=== PATIENT | male | born 1950 | race African-American/Black ===

== ENCOUNTER 2017-09-26 15:59 | Emergency (ER) | payer MEDICARE, MEDICAID ==
[~2017-09-26] VITALS: Ht 177.8 cm; Wt 77.0 kg
[2017-09-26] MEDS ORDERED: FENTANYL CITRATE/PF 50MCG/ML 2ML VIAL IV ONE ×2 (17:30→19:15)
[2017-09-26] MEDS ORDERED: KETAMINE HCL 50 MG/ML 10ML IV ONE (19:00)
[2017-09-26 21:50] VITALS: BP 171/87
[2017-09-26] MEDS ORDERED: ONDANSETRON 4MG ODT PO ONE (23:15)
== END 2017-09-26 23:30 | disposition home or self-care (01) ==
LOC: ER 16:22
DX: S43.005A Unspecified dislocation of left shoulder joint, initial encounter (principal); E11.9 Type 2 diabetes mellitus without complications; I10 Essential (primary) hypertension; F17.200 Nicotine dependence, unspecified, uncomplicated; W01.0XXA Fall on same level from slipping, tripping and stumbling without subsequent striking against object, initial encounter; Y93.89 Activity, other specified; Y92.89 Other specified places as the place of occurrence of the external cause; Y99.8 Other external cause status
CPT/HCPCS: 23650; 73030; 96374; 96376; 99285; J3010; J3490; Q0162; 99152; A4565; L3670

== ENCOUNTER 2019-06-22 05:23 | Inpatient (IN) | payer MEDICARE, MEDICAID ==
[~2019-06-22] VITALS: Ht 172.7 cm; Wt 78.0 kg
[2019-06-22] MEDS ORDERED: ONDANSETRON HCL 4MG/2ML INJ IV STA (05:48)
[2019-06-22] MEDS ORDERED: SODIUM CHLORIDE 0.9% 1,000 ML IV ONE (05:48)
[2019-06-22] MEDS ORDERED: PANTOPRAZOLE SODIUM 40 MG/VIAL IV STA (05:53)
[2019-06-22 06:24] LABS: BASOPHILS % 0.5 % (0.0-2.0); HEMATOCRIT. 26.2 % (42.0-52.0); HEMOGLOBIN. 8.1 g/dL (14.0-18.0); MEAN CORPUSCULAR HEMOGLOBIN 31.7 pg (28.0-32.0); MEAN PLATELET VOLUME 9.5 fl (7.4-10.4); MONOCYTES % 8.5 % (2.0-8.0); PLATELET 190 x1000/uL (130-400); RED BLOOD CELL COUNT 2.57 mill/uL (4.7-6.1); RED CELL DISTRIBUTION WIDTH 20.4 % (11.6-14.6)
[2019-06-22 06:29] LABS: CHLORIDE 107 mEq/L (98-107); INR 1.2; PROTHROMBIN TIME 13.4 sec (9.6-11.0)
[2019-06-22 06:33] LABS: ETHANOL BLOOD 224 mg/dL
[2019-06-22 07:21] LABS: CREATINE KINASE 187 IU/L (39-308)
[2019-06-22 07:24] LABS: CLARITY URINE CLOUDY (CLEAR); COLOR URINE YELLOW (YELLOW); KETONES URINE NEGATIVE (NEGATIVE); LEUKOCYTE ESTERASE URINE NEGATIVE (NEGATIVE); NITRITE URINE NEGATIVE (NEGATIVE); OCCULT BLOOD URINE NEGATIVE (NEGATIVE); PROTEIN URINE TRACE (NEGATIVE)
[2019-06-22] MEDS ORDERED: PIPERACILLIN/TAZ 3.375G PREMIX 50 ML IV SCH (07:45)
[2019-06-22] MEDS ORDERED: PIPERACILLIN/TAZOBACTAM 3.375GM/50ML PREMIX IV ONE (07:45)
[2019-06-22] MEDS ORDERED: SODIUM CHLORIDE 0.9% 1,300 ML IV SCH (07:45)
[2019-06-22 07:46] LABS: *AMPHETAMINES SCREEN URINE NEGATIVE (NEGATIVE); *BARBITURATES SCREEN URINE NEGATIVE (NEGATIVE); *BENZODIAZEPINES SCREEN URINE NEGATIVE (NEGATIVE); *COCAINE SCREEN URINE NEGATIVE (NEGATIVE); METHADONE URINE SCREEN NEGATIVE (NEGATIVE)
[2019-06-22 07:47] LABS: CANNABINOID URINE SCREEN PRESUMTIVE POSITIVE (NEGATIVE); OPIATES URINE SCREEN NEGATIVE (NEGATIVE); PHENCYCLIDINE URINE SCREEN NEGATIVE (NEGATIVE)
[2019-06-22] MEDS ORDERED: LORAZEPAM 2MG/ML CPJ IV ONE (09:15)
[2019-06-22] MEDS ORDERED: DIPHENHYDRAMINE 50MG/ML VIAL IV PRN (09:45)
[2019-06-22] MEDS ORDERED: ACETAMINOPHEN 325MG TABLET PO PRN (09:45)
[2019-06-22] MEDS ORDERED: ONDANSETRON HCL 4MG/2ML INJ IV PRN (09:45)
[2019-06-22] MEDS ORDERED: CLONIDINE 0.1MG TABLET PO PRN (09:45)
[2019-06-22 10:07] LABS: PHOSPHORUS 2.6 mg/dL (2.5-4.9)
[2019-06-22] MEDS ORDERED: SODIUM CHLORIDE 0.9% 1,000 ML IV SCH (11:00)
[2019-06-22] MEDS ORDERED: SODIUM BICARBONATE 8.4% 1 MEQ/ML 50ML SYR IV SCH (11:45)
[2019-06-22 12:43] LABS: BG BASE EXCESS -10.2 mmol/L (-2.0-2.0); BG CARBOXYHEMOGLOBIN 0.3 % (0.5-1.5); BG DEOXYHEMOGLOBIN 5.2 % (0.0-5.0); BG FRACTION INSPIRED OXYGEN 24; BG HCO3 ACT 15.8 mmol/L (22.0-26.0); BG METHEMOGLOBIN 0.1 % (0.0-1.5); BG OXYGEN SATURATION 94.8 % (92.0-98.5); BG OXYHEMOGLOBIN 94.4 % (94.0-97.0); BG PCO2 35.3 mmHg (35.0-45.0); BG PH 7.269 (7.350-7.450); BG PO2 92.8 mmHg (75.0-100.0); BG SAMPLE SITE RIGHT RADIAL; BG TOTAL HEMOGLOBIN 7.4 g/dL (12.0-18.0); BG VENT MODE NASAL CANNULA
[2019-06-22] MEDS: SODIUM BICARBONATE 150 MEQ in DEXTROSE 5% WATER 1,000 ML IV SCH (13:44)
[2019-06-22] MEDS ORDERED: DILTIAZEM HCL 90MG TABLET PO NR (16:45)
[2019-06-22] MEDS ORDERED: PIPERACILLIN/TAZ 3.375G PREMIX 50 ML IV NR (18:00)
[2019-06-22] MEDS ORDERED: PANTOPRAZOLE 80 MG in SODIUM CHLORIDE 0.9% 100 ML IV SCH (19:00)
[2019-06-22] MEDS ORDERED: OCTREOTIDE 1,000 MCG in SODIUM CHLORIDE 0.9% 100 ML IV SCH (21:00)
[2019-06-22] MEDS ORDERED: OCTREOTIDE ACETATE 50 MCG/ML 1ML IV NR (21:15)
[2019-06-22] MEDS ORDERED: OCTREOTIDE ACETATE 100 MCG/ML 1ML SUBCUT NR (21:15)
[2019-06-22 21:30] LABS: HEMATOCRIT 22.6 % (42.0-52.0); HEMOGLOBIN 7.4 g/dL (14.0-18.0)
[2019-06-22 22:00] LABS: CREATINE KINASE MB FRACTION 8.7 ng/mL (0.5-3.6)
[2019-06-22 22:13] LABS: FOLIC ACID (FOLATE) SERUM 6.1 ng/mL (>5.38)
[2019-06-22 22:45] VITALS: BP 182/86
[2019-06-22 23:00] VITALS: BP_SYST 167; BP_SYST 182; BP_DIAS 86; BP_DIAS 87
[2019-06-22 23:15] VITALS: BP 156/78
[2019-06-22] MEDS ORDERED: DEXTROSE 50% WATER 50ML SYRINGE IV PRN (23:15)
[2019-06-22 23:30] VITALS: BP 147/85
[2019-06-22 23:45] VITALS: BP 153/83
[2019-06-23] VITALS (98 sets, daily range): BP systolic 89–163; BP diastolic 47–95
[2019-06-23] MEDS: OCTREOTIDE 1,000 MCG in SODIUM CHLORIDE 0.9% 100 ML IV SCH ×2 (00:01→18:17)
[2019-06-23] MEDS: PANTOPRAZOLE SODIUM 40 MG/VIAL IV SCH ×3 (00:04→16:38)
[2019-06-23] MEDS: DILTIAZEM HCL 90MG TABLET PO SCH ×4 (00:04→21:03)
[2019-06-23 01:33] LABS: BASOPHILS % 0.5 % (0.0-2.0); EOSINOPHILS % 0.1 % (0.0-5.0); HEMATOCRIT. 23.8 % (42.0-52.0); HEMOGLOBIN. 7.9 g/dL (14.0-18.0); LYMPHOCYTES % 7.4 % (20.0-50.0); MEAN CORPUSCULAR HEMOGLOBIN 31.6 pg (28.0-32.0); MEAN CORPUSCULAR VOLUME 94.7 fL (80.0-94.0); MONOCYTES % 7.8 % (2.0-8.0); NEUTROPHILS % 84.2 % (40.0-76.0); RED BLOOD CELL COUNT 2.51 mill/uL (4.7-6.1); RED CELL DISTRIBUTION WIDTH 20.1 % (11.6-14.6)
[2019-06-23 01:53] LABS: CREATINE KINASE MB FRACTION 6.1 ng/mL (0.5-3.6)
[2019-06-23 01:58] LABS: MEAN PLATELET VOLUME 8.7 fl (7.4-10.4)
[2019-06-23 01:59] LABS: PLATELET 82 x1000/uL (130-400)
[2019-06-23] MEDS ORDERED: PIPERACILLIN/TAZ 3.375G PREMIX 50 ML IV SCH (02:00)
[2019-06-23] MEDS: SODIUM BICARBONATE 150 MEQ in DEXTROSE 5% WATER 1,000 ML IV SCH (02:06)
[2019-06-23] MEDS: PIPERACILLIN/TAZOBACTAM 2.25 G in DEXTROSE 5% WATER 50 ML IV SCH ×2 (02:07→09:23)
[2019-06-23 05:41] LABS: BASOPHILS % 0.2 % (0.0-2.0); EOSINOPHILS % 0.2 % (0.0-5.0); HEMATOCRIT. 21.3 % (42.0-52.0); LYMPHOCYTES % 8.1 % (20.0-50.0); MEAN CORPUSCULAR HEMOGLOBIN 31.3 pg (28.0-32.0); MEAN CORPUSCULAR VOLUME 94.8 fL (80.0-94.0); MEAN PLATELET VOLUME 8.8 fl (7.4-10.4); MONOCYTES % 7.2 % (2.0-8.0); NEUTROPHILS % 84.3 % (40.0-76.0); PLATELET 73 x1000/uL (130-400); RED BLOOD CELL COUNT 2.25 mill/uL (4.7-6.1); RED CELL DISTRIBUTION WIDTH 19.9 % (11.6-14.6)
[2019-06-23 05:44] LABS: CHLORIDE 109 mEq/L (98-107)
[2019-06-23 05:52] LABS: LDL CHOLESTEROL 25 mg/dL (5-100)
[2019-06-23 05:53] LABS: CREATINE KINASE 186 IU/L (39-308)
[2019-06-23 05:54] LABS: HDL CHOLESTEROL 38 mg/dL (40-59)
[2019-06-23] MEDS: BLOOD SUGAR DIAGNOSTIC STRIP TEST SCH ×4 (06:30→21:46)
[2019-06-23] MEDS: INSULIN LISPRO 100 UNITS/ML SUBCUT SCH ×4 (06:34→21:00)
[2019-06-23] MEDS ORDERED: PANTOPRAZOLE SODIUM 40 MG/VIAL IV SCH (09:00)
[2019-06-23] MEDS: CLONIDINE 0.1MG TABLET PO SCH ×2 (09:00→21:02)
[2019-06-23] MEDS ORDERED: SODIUM BICARBONATE 50 MEQ in DEXTROSE 5% WATER 1,000 ML IV SCH (13:00)
[2019-06-23] MEDS ORDERED: BENZONATATE 100MG CAPSULE PO PRN (16:15)
[2019-06-23 23:54] LABS: BASOPHILS % 0.5 % (0.0-2.0); EOSINOPHILS % 2.7 % (0.0-5.0); HEMATOCRIT. 28.3 % (42.0-52.0); HEMOGLOBIN. 9.6 g/dL (14.0-18.0); LYMPHOCYTES % 14.1 % (20.0-50.0); MEAN CORPUSCULAR HEMOGLOBIN 31.2 pg (28.0-32.0); MEAN CORPUSCULAR VOLUME 92.3 fL (80.0-94.0); MEAN PLATELET VOLUME 8.4 fl (7.4-10.4); MONOCYTES % 9.7 % (2.0-8.0); PLATELET 59 x1000/uL (130-400); RED BLOOD CELL COUNT 3.07 mill/uL (4.7-6.1); RED CELL DISTRIBUTION WIDTH 20.6 % (11.6-14.6)
[2019-06-24] VITALS (52 sets, daily range): BP systolic 99–175; BP diastolic 47–101
[2019-06-24] LABS: CHLORIDE 110 mEq/L (98-107)
[2019-06-24 00:09] LABS: INR 1.3; PROTHROMBIN TIME 14.3 sec (9.6-11.0)
[2019-06-24 05:23] LABS: HEMATOCRIT. 29.1 % (42.0-52.0); HEMOGLOBIN. 9.8 g/dL (14.0-18.0); MEAN CORPUSCULAR HEMOGLOBIN 31.3 pg (28.0-32.0); MEAN CORPUSCULAR VOLUME 92.5 fL (80.0-94.0); PLATELET 58 x1000/uL (130-400); RED BLOOD CELL COUNT 3.14 mill/uL (4.7-6.1); RED CELL DISTRIBUTION WIDTH 20.8 % (11.6-14.6)
[2019-06-24] MEDS: DILTIAZEM HCL 90MG TABLET PO SCH ×3 (06:02→21:29)
[2019-06-24 06:03] LABS: CHLORIDE 110 mEq/L (98-107)
[2019-06-24 06:11] LABS: PHOSPHORUS 1.9 mg/dL (2.5-4.9)
[2019-06-24] MEDS: BLOOD SUGAR DIAGNOSTIC STRIP TEST SCH ×4 (06:49→20:54)
[2019-06-24] MEDS: INSULIN LISPRO 100 UNITS/ML SUBCUT SCH ×4 (06:49→20:54)
[2019-06-24] MEDS: PANTOPRAZOLE SODIUM 40 MG/VIAL IV SCH ×2 (08:20→19:15)
[2019-06-24] MEDS: CLONIDINE 0.1MG TABLET PO SCH ×2 (08:20→21:29)
[2019-06-24 09:06] LABS: FOLATE HEMATOCRIT 22.3 % (37.5-51.0)
[2019-06-24 10:09] LABS: FOLATE RBC 1556 ng/mL (>498)
[2019-06-24 11:06] LABS: PLATELET ESTIMATE DECREASED
[2019-06-24] MEDS ORDERED: MAGNESIUM 4 G PREMIX 100 ML IV NR (12:00)
[2019-06-24] MEDS ORDERED: POTASSIUM PHOS,M-BASIC-D-BASIC 30 MMOL in DEXT 5% WATER 500 ML IV NR (13:00)
[2019-06-24] MEDS: DEXTROSE 5% WATER 1,000 ML IV SCH (16:51)
[2019-06-25] VITALS: BP 124/50
[2019-06-25 04:00] VITALS: BP 144/75
[2019-06-25] MEDS: DILTIAZEM HCL 90MG TABLET PO SCH ×2 (05:18→13:26)
[2019-06-25] MEDS: BLOOD SUGAR DIAGNOSTIC STRIP TEST SCH ×3 (06:42→16:56)
[2019-06-25] MEDS: INSULIN LISPRO 100 UNITS/ML SUBCUT SCH ×3 (06:42→16:59)
[2019-06-25 06:59] LABS: BASOPHILS % 0.4 % (0.0-2.0); EOSINOPHILS % 1.7 % (0.0-5.0); HEMATOCRIT. 28.9 % (42.0-52.0); HEMOGLOBIN. 9.7 g/dL (14.0-18.0); LYMPHOCYTES % 13.1 % (20.0-50.0); MEAN CORPUSCULAR HEMOGLOBIN 31.5 pg (28.0-32.0); MEAN CORPUSCULAR VOLUME 93.8 fL (80.0-94.0); MEAN PLATELET VOLUME 9.3 fl (7.4-10.4); MONOCYTES % 10.1 % (2.0-8.0); NEUTROPHILS % 74.7 % (40.0-76.0); PLATELET 62 x1000/uL (130-400); RED BLOOD CELL COUNT 3.08 mill/uL (4.7-6.1); RED CELL DISTRIBUTION WIDTH 19.9 % (11.6-14.6)
[2019-06-25 07:03] LABS: CHLORIDE 107 mEq/L (98-107)
[2019-06-25 07:15] LABS: PHOSPHORUS 2.6 mg/dL (2.5-4.9)
[2019-06-25 08:00] VITALS: BP 142/68
[2019-06-25] MEDS: PANTOPRAZOLE SODIUM 40 MG/VIAL IV SCH ×2 (08:21→16:56)
[2019-06-25] MEDS: CLONIDINE 0.1MG TABLET PO SCH (08:22)
[2019-06-25 12:28] VITALS: BP 138/66
[2019-06-25] MEDS: DEXTROSE 5% WATER 1,000 ML IV SCH (13:26)
[2019-06-25] MEDS ORDERED: POTASSIUM CHLORIDE 20MEQ TABLET SR PO NR (14:45)
[2019-06-25 16:09] VITALS: BP 130/72
[2019-06-25] MEDS ORDERED: PANT40TA4 MT (17:05)
[2019-06-25] MEDS ORDERED: CLON0.1T14 PO (17:05)
[2019-06-25] MEDS ORDERED: DILT300C35 MT (17:05)
[2019-06-25 17:30] VITALS: BP 130/72
== END 2019-06-25 18:45 | disposition home or self-care (01) | DRG 377 ==
LOC: ER 05:23 → MICUSO 06:04 → EDBEDREQSVC 11:19 → EDBEDREQTM 11:28 → EDBEDREQ 11:28 → CANRESERV 21:30 → ENRESERV 21:30 → 7EST 06-24 13:07
PROVIDERS: ADMIT Internal Medicine; ATTEND Internal Medicine
PROC: 30233N1 Transfusion of Nonautologous Red Blood Cells into Peripheral Vein, Percutaneous Approach (ICD-10-PCS; principal; 2019-06-22)
DX: K92.0 Hematemesis (principal); J96.01 Acute respiratory failure with hypoxia; E43 Unspecified severe protein-calorie malnutrition; E87.2 Acidosis; F10.239 Alcohol dependence with withdrawal, unspecified; N17.9 Acute kidney failure, unspecified; R64 Cachexia; E87.0 Hyperosmolality and hypernatremia; J44.9 Chronic obstructive pulmonary disease, unspecified; M54.9 Dorsalgia, unspecified; K92.1 Melena; D50.0 Iron deficiency anemia secondary to blood loss (chronic); D53.9 Nutritional anemia, unspecified; D69.6 Thrombocytopenia, unspecified; E11.9 Type 2 diabetes mellitus without complications; F10.229 Alcohol dependence with intoxication, unspecified; F17.210 Nicotine dependence, cigarettes, uncomplicated; G89.29 Other chronic pain; I11.9 Hypertensive heart disease without heart failure; I25.10 Atherosclerotic heart disease of native coronary artery without angina pectoris; R00.0 Tachycardia, unspecified; E83.42 Hypomagnesemia; D72.810 Lymphocytopenia; E83.39 Other disorders of phosphorus metabolism; K70.9 Alcoholic liver disease, unspecified; K74.60 Unspecified cirrhosis of liver; Z79.82 Long term (current) use of aspirin; Z82.49 Family history of ischemic heart disease and other diseases of the circulatory system; Z83.3 Family history of diabetes mellitus; Z68.26 Body mass index [BMI] 26.0-26.9, adult; Z71.6 Tobacco abuse counseling
CPT/HCPCS: 36415; 36430; 36600; 71045; 80048; 80053; 80061; 80076; 80305; 80320; 81003; 82375; 82550; 82553; 82607; 82728; 82746; 82747; 82805; 82962; 83036; 83540; 83550; 83605; 83735; 84100; 84145; 84443; 84484; 85014; 85018; 85025; 86850; 86900; 86920; 87804; 93005; 96361; 96365; 96366; 96375; 99291; C9113; J1815; J2060; J2354; J2405; J2543; J3475; J3490; J7030; J7050; J7060; J7070; P9016; G0480